=== PATIENT | male | born 1975 | race Two or more races ===

== ENCOUNTER 2020-03-19 17:00 | Emergency (ER) | payer MEDICAID ==
[~2020-03-19] VITALS: Ht 188 cm; Wt 108.9 kg
[2020-03-19] MEDS ORDERED: TETANUS-DIPTH-ACEL PERTUSSIS 0.5ML SYR Tdap IM ONE (19:15)
[2020-03-19] MEDS ORDERED: LIDOCAINE 1% HCL (LOCAL ANESTH.) INJ 20ML MDV IJ ONE (19:15)
[2020-03-19 20:28] VITALS: BP 148/52
== END 2020-03-19 20:55 | disposition home or self-care (01) ==
LOC: ER 17:00
DX: S61.317A Laceration without foreign body of left little finger with damage to nail, initial encounter (principal); W26.8XXA Contact with other sharp object(s), not elsewhere classified, initial encounter; Y93.89 Activity, other specified; Y92.89 Other specified places as the place of occurrence of the external cause; Y99.8 Other external cause status
CPT/HCPCS: 12001; 90471; 90715

== ENCOUNTER 2022-05-05 20:32 | Emergency (ER) | payer MEDICAID ==
[~2022-05-05] VITALS: Ht 188 cm; Wt 118.7 kg
[2022-05-05 20:40] VITALS: BP 138/86
[2022-05-05] MEDS ORDERED: ALBUTEROL MEDNEB 2.5 mg/3ml NEB ONE (21:00)
[2022-05-05] MEDS ORDERED: CEPH-510 PO (21:53)
[2022-05-05] MEDS ORDERED: CEPHALEXIN 250 MG CAP PO ONE (22:00)
== END 2022-05-05 22:06 | disposition home or self-care (01) ==
LOC: ER 20:32
DX: L73.9 Follicular disorder, unspecified (principal)

== ENCOUNTER 2022-09-10 14:21 | Emergency (ER) | payer MEDICAID ==
[~2022-09-10] VITALS: Ht 188 cm; Wt 118.2 kg
[~2022-09-10 14:21] MED LIST: BACDST PO; CEPH-510 PO; NEOM-48 EX
[2022-09-10 15:12] LABS: Basophils # (auto) 0 10 ^3/uL (0-0.2); Basophils % (auto) 0.5 % (0.0-2.0); Eosinophils # (auto) 0.2 10 ^3/uL (0-0.8); Eosinophils % (auto) 1.8 % (0.0-7.0); Hematocrit 44.1 % (41.0-53.0); Lymphocytes # (auto) 2.5 10 ^3/uL (0.4-5.4); Lymphocytes % (auto) 28.2 % (10.0-50.0); Mean Corpuscular Hgb Conc. 33.9 g/dL (32.0-36.0); Mean Corpuscular Volume 85.6 fL (80.0-100.0); Monocytes # (auto) 0.5 10 ^3/uL (0-1.3); Monocytes % (auto) 6.1 % (0.0-12.0); Neutrophils # (auto) 5.7 10 ^3/uL (1.6-8.6); Neutrophils % (auto) 63.4 % (37.0-80.0); Nucleated Red Blood Cells % 0.1 %; Red Blood Cells 5.15 10^6/uL (4.5-5.90); Red Cell Distribution Width 13.9 % (11.8-14.3)
[2022-09-10 15:30] LABS: Albumin 3.8 g/dL (3.4-5.0); Calcium 7.9 mg/dL (8.5-10.1); Potassium 3.7 mmol/L (3.5-5.1)
[2022-09-10 15:34] LABS: BUN/Creatinine Ratio 10.2 (10.0-20.0); Bilirubin, Total 0.5 mg/dL (0.2-1.0); Total Protein 7.8 g/dL (6.4-8.2)
[2022-09-10] MEDS ORDERED: MUPI2CRE17 EX (15:50)
[2022-09-10] MEDS ORDERED: VALA1TAB34 PO (15:50)
[2022-09-10 17:31] VITALS: BP 130/96
== END 2022-09-10 17:32 | disposition home or self-care (01) ==
LOC: ER 14:21
DX: B00.9 Herpesviral infection, unspecified (principal); L01.00 Impetigo, unspecified; E66.01 Morbid (severe) obesity due to excess calories; Z88.2 Allergy status to sulfonamides; Z88.1 Allergy status to other antibiotic agents; Z68.33 Body mass index [BMI] 33.0-33.9, adult
CPT/HCPCS: 36415; 80053; 85025

== ENCOUNTER 2022-09-18 08:35 | Emergency (ER) | payer MEDICAID ==
[~2022-09-18] VITALS: Ht 188 cm; Wt 118.9 kg
[~2022-09-18 08:35] MED LIST changes: +MUPI2CRE17 EX; +VALA1TAB34 PO
[2022-09-18 08:40] VITALS: BP 123/97
[2022-09-18] MEDS ORDERED: CLIN300C70 PO (09:14)
[2022-09-18] MEDS ORDERED: CEPH500C PO (09:14)
== END 2022-09-18 09:23 | disposition home or self-care (01) ==
LOC: ER 08:35
DX: L73.9 Follicular disorder, unspecified (principal); L01.00 Impetigo, unspecified; Z88.1 Allergy status to other antibiotic agents

== ENCOUNTER 2022-11-25 11:53 | Emergency (ER) | payer MEDICAID ==
[~2022-11-25] VITALS: Ht 188 cm; Wt 113.6 kg
[~2022-11-25 11:53] MED LIST changes: +CEPH500C PO; +CLIN300C70 PO
[2022-11-25 13:00] VITALS: BP 142/89; PULSE 93; RESP 18; TEMP 98.7; O2SAT 97
== END 2022-11-25 13:29 | disposition home or self-care (01) ==
LOC: ER 11:53
DX: M77.32 Calcaneal spur, left foot (principal); I10 Essential (primary) hypertension; M10.9 Gout, unspecified; Z79.2 Long term (current) use of antibiotics; Z79.899 Other long term (current) drug therapy
CPT/HCPCS: 73620